=== PATIENT | female | born 1945 ===

== ENCOUNTER 2018-01-26 21:54 | Emergency (ER) | payer MEDICARE, MEDICAID ==
[2018-01-26 21:55] VITALS: PULSE 65
[2018-01-26 22:14] VITALS: O2SAT 96
--- NOTE | 2018-01-26 23:04 | ED PDOC ---
HPI: Influenza Time Seen by Provider: 01/26/18 22:45 Chief Complaint: Cough, Cold, Congestion Chief Complaint (Provider): Productive Cough History Per: Patient Exam Limitations: no limitations Onset/Duration Of Symptoms: Days (x3) Additional complaint(s):: 72 y/o female with a PMHx of recent pacemaker replacement 3 months ago (initial placement 2015) presenting for evaluation of cough productive of white phlegm x3 days. Patient reports taking OTC NyQuil and DayQuil without relief. She denies any fevers, chills, sweats, chest pain, shortness of breath, or wheezing. She denies any other symptoms at this time. PMD: None reported Past Medical History Reviewed: Historical Data, Nursing Documentation, Vital Signs Vital Signs: Last Vital Signs Temp 99.5 F 01/26/18 22:10 Pulse 96 H 01/26/18 22:10 Resp 18 01/26/18 22:10 BP 128/70 01/26/18 22:10 Pulse Ox 96 01/26/18 22:10 - Medical History PMH: Atrial Fibrillation, HTN Denies: Chronic Kidney Disease - Surgical History Surgical History: CABG, Pacemaker - Family History Family History: States: Unknown Family Hx - Social History Current smoker - smoking cessation education provided: No Alcohol: None Drugs: Denies - Home Medications Home Medications: Ambulatory Orders Medication Instructions Recorded Aspirin [Aspirin Chewable] 81 mg PO DAILY #0 ctb 06/21/16 Atorvastatin [Lipitor] 40 mg PO DAILY #60 tab 06/21/16 Carvedilol [Coreg] 25 mg PO BID #28 tab 06/21/16 Digoxin 0.125 mg PO QOTHERDAY #0 tab 06/21/16 Ergocalciferol (Vitamin D2) 1 cap PO SAT #0 capsule 06/21/16 [Vitamin D2] Furosemide [Lasix] 20 mg PO DAILY #0 tab 06/21/16 Losartan [Cozaar] 50 mg PO DAILY #0 tab 06/21/16 Rivaroxaban [Xarelto] 15 mg PO DAILY #0 tab 06/21/16 Azithromycin [Z-Elmer] 250 mg PO DAILY #6 tab 01/27/18 - Allergies Allergies/Adverse Reactions: Allergies Allergy/AdvReac Type Severity Reaction Status Date / Time No Known Allergies Allergy Verified 01/26/18 22:10 Review of Systems ROS Statement: Except As Marked, All Systems Reviewed And Found Negative Constitutional: Negative for: Fever, Chills, Sweats Cardiovascular: Negative for: Chest Pain Respiratory: Positive for: Cough, Sputum. Negative for: Shortness of Breath, Wheezing Physical Exam - Reviewed Nursing Documentation Reviewed: Yes Vital Signs Reviewed: Yes - Physical Exam Appears: Positive for: Well, Non-toxic, No Acute Distress Head Exam: Positive for: ATRAUMATIC, NORMAL INSPECTION, NORMOCEPHALIC Skin: Positive for: Normal Color, Warm, Dry. Negative for: Rash Eye Exam: Positive for: EOMI, Normal appearance, PERRL Neck: Positive for: Normal, Painless ROM, Supple Cardiovascular/Chest: Positive for: Regular Rate, Rhythm, Chest Non Tender, Other (pacemaker site clean, no erythema, no tenderness) Respiratory: Positive for: Normal Breath Sounds. Negative for: Respiratory Distress Gastrointestinal/Abdominal: Positive for: Normal Exam, Soft. Negative for: Tenderness Back: Positive for: Normal Inspection. Negative for: L CVA Tenderness, R CVA Tenderness, Vertebral Tenderness Extremity: Positive for: Normal ROM. Negative for: Pedal Edema, Deformity Neurologic/Psych: Positive for: Alert, Oriented. Negative for: Motor/Sensory Deficits Medical Decision Making Medical Decision Making: A/P: 72 y/o female with a history of recent pacemaker replacement presenting with productive cough. Patient is very well appearing. -Patient very well appearing at this time with normal vital signs -EKG demonstrates functioning pacemaker -CXR shows no signs of acute pneumonia -Given age and risk factors for bacterial infection, will treat with course of Azithromycin and refer to PCP 00:25 Upon provider reevaluation, patient is medically stable for discharge. Counseling was provided and all questions were answered regarding diagnosis. Strongly advised follow up with PCP in 2-3 days. Return precautions were discussed. ----- Scribe Attestation: Documented by Kaushik Chance, acting as a scribe for Miguel Luke MD. Provider Scribe Attestation: All medical record entries made by the Scribe were at my direction and personally dictated by me. I have reviewed the chart and agree that the record accurately reflects my personal performance of the history, physical exam, medical decision making, and the department course for this patient. I have also personally directed, reviewed, and agree with the discharge instructions and disposition. - ECG O2 Sat by Pulse Oximetry: 96 (RA) Pulse Ox Interpretation: Normal Disposition - Clinical Impression Clinical Impression: Cough - Patient ED Disposition Is Patient to be Admitted: No Counseled Patient/Family Regarding: Studies Performed, Diagnosis, Need For Followup, Rx Given - Disposition Referrals: Richard Russ MD [Family Provider] - Disposition: Routine/Home Disposition Time: 00:25 Condition: STABLE Prescriptions: Azithromycin [Z-Elmer] 250 mg PO DAILY #6 tab Instructions: Cough, Adult (DC) Forms: [facility] (Liberian) Print Language: GHANAIAN
[2018-01-27 00:51] VITALS: BP 138/62; PULSE 99; RESP 16; TEMP 100
--- NOTE | 2018-01-27 14:40 | RAD ---
Date of service: 01/26/2018 HISTORY: 3 days of cough, pacemaker COMPARISON: No prior. TECHNIQUE: Chest PA and lateral FINDINGS: LUNGS: Hyperinflated lungs. No focal consolidation. PLEURA: No significant pleural effusion identified. No pneumothorax apparent. CARDIOVASCULAR: Left subclavian access AICD/ pacemaker redemonstrated. Atherosclerotic aortic calcifications. Cardiomediastinal silhouette stably enlarged. OSSEOUS STRUCTURES: Unchanged. VISUALIZED UPPER ABDOMEN: Normal. OTHER FINDINGS: None. IMPRESSION: No active disease.
--- NOTE | 2018-01-29 16:39 | CARD ---
APPROVED REPORT Date of service: 01/26/2018 EKG Measurement Heart [id number] <Conclusion> Atrial-sensed ventricular-paced rhythm with occasional AV dual-paced complexes and with occasional premature ventricular comp Abnormal ECG
== END 2018-01-27 00:50 | disposition home or self-care (01) ==
LOC: H.ER 21:54
DX: R05 Cough (principal); I10 Essential (primary) hypertension; Z79.82 Long term (current) use of aspirin; Z95.0 Presence of cardiac pacemaker; Z95.1 Presence of aortocoronary bypass graft